=== PATIENT | male | born 1995 | race Caucasian/White ===

== ENCOUNTER 2016-07-31 12:23 | Emergency (ER) | payer OTHER ==
[2016-07-31 12:37] VITALS: BP 137/80; PULSE 69; RESP 18; TEMP 98.8; O2SAT 95
--- NOTE | 2016-07-31 12:49 | UCPHY ---
H & P Patient Type: New Chief Complaint Nursing Narrative: LEFT EYELID REDNESS AND SWELLING STARTED YESTERDAY, UNKNOWN CAUSE, REPORTS NO VISUAL CHANGES, WEARS CONTACTS Time Seen by Provider: 07/31/16 12:41 HPI/ROS: Chief complaint: Left eyelid pain and irritation HPI: 21-year-old male presenting with 2 days of increasing left upper eyelid irritation and redness. He has not had any discharge from the eye. No matting. Does not have a history of styes of her eyelid problems in the past. No recent illness. No vision changes. No eye pain. ROS: 10 point Review of Systems is negative except as noted in the HPI. Past medical history: None Medications: None Allergies: None Physical exam: General: Awake, alert, no acute distress Eyes: Left upper eyelid is mildly swollen with minimal edema. There is a single punctate point along the lateral upper lid margin which could represent an early stye formation. There is no palpable collection or stone exam. Eyelids were inverted with no significant lesions noted. The globe is completely normal. There is no discharge. - Medical/Surgical History Other PMH: ORTHO HAND SURG - Family History Significant Family History: No pertinent family hx - Social History Smoking Status: Never smoked Constitutional: Initial Vital Signs Temperature (C) 37.1 C 07/31/16 12:34 Heart Rate 69 07/31/16 12:34 Respiratory Rate 18 07/31/16 12:34 Blood Pressure 137/80 H 07/31/16 12:34 O2 Sat (%) 95 07/31/16 12:34 O2 Delivery Mode Room Air Allergies/Adverse Reactions: No Known Allergies Allergy (Unverified 07/31/16 12:33) Home Medications: Medication Instructions Recorded Erythromycin 0.5% 1 inocente OP QID #1 opht.oint 07/31/16 Departure - Departure Disposition: Home, Routine, Self-Care Clinical Impression: Blepharitis, Sty Condition: Good Instructions: Blepharitis (ED), Stye (ED) Additional Instructions: Apply the eye ointment every 4 hours while awake for the next 3 days. Apply warm washcloth compresses multiple times a day. Follow up with [facility] in 3-4 days if symptoms are not improving. Referrals: NONE *PRIMARY CARE P,. [Primary Care Provider] - As per Instructions [facility] [Outside] - As per Instructions Prescriptions: Erythromycin 0.5% 1 inocente OP QID #1 opht.oint - PQRS PQRS Measurement: NA
== END 2016-07-31 13:10 | disposition home or self-care (01) ==
LOC: CED 12:23
DX: H01.004 Unspecified blepharitis left upper eyelid (principal)
CPT/HCPCS: G0463-PO